=== PATIENT | male | born 2005 | race African-American/Black ===

== ENCOUNTER 2025-08-01 20:27 | Emergency (ER) | payer BC ==
[~2025-08-01] VITALS: Ht 190.5 cm; Wt 72.6 kg
[2025-08-01 20:29] VITALS: BP 97/36
[2025-08-01 21:12] LABS: PLATELET COUNT (AUTO) 257 K/uL (152-348); RED BLOOD CELL COUNT(AUTO) 4.72 MIL/uL (4.06-5.63); RED CELL DISTRIBUTION WIDTH 13.5 % (12.1-16.2); WHITE BLOOD COUNT (AUTO) 8.0 K/uL (3.6-10.2)
[2025-08-01 21:18] LABS: CREATININE 1.1 mg/dL (0.6-1.3); SODIUM SERUM 139 mmol/L (136-145); UREA NITROGEN, BLOOD 8 mg/dL (7-18)
[2025-08-01 21:24] LABS: ASPARTATE AMINOTRANSFERASE 13 U/L (15-37); ETHANOL < 3 MG/DL (0-10); TOTAL PROTEIN, SERUM 7.3 g/dL (6.4-8.2)
[2025-08-01] MEDS: IV NORMAL SALINE 1000 ML BAG IV ONE (21:25)
[2025-08-01] MEDS ORDERED: ACETAMINOPHEN 500 MG TABLET ONE (21:36)
[2025-08-01] MEDS: ACETAMINOPHEN 500 MG TABLET PO ONE (21:38)
[2025-08-01] MEDS ORDERED: LEVE500T9 PO (22:39)
[2025-08-01 23:11] VITALS: BP 110/62; O2SAT 98
== END 2025-08-01 23:02 | disposition home or self-care (01) ==
LOC: ER 20:33 → EDBD 20:33 → ER 23:02
DX: R56.9 Unspecified convulsions (principal); F12.90 Cannabis use, unspecified, uncomplicated; F17.290 Nicotine dependence, other tobacco product, uncomplicated; I21.9 Acute myocardial infarction, unspecified; Z79.899 Other long term (current) drug therapy
CPT/HCPCS: 80076; 80048; 85025; 85730; 84484; 36415; 73020; 73502; 93005; 99285; 96374; 80320; J1953 ×2; J7040; A4606; A4663; A9150; G0480